=== PATIENT | female | born 1950 | race Caucasian/White ===

== ENCOUNTER 2022-12-17 00:53 | Emergency (ER) | payer MEDICARE, OTHER ==
[2022-12-17] MEDS ORDERED: Diazepam 5 MG TAB ONE (01:41)
[2022-12-17] MEDS ORDERED: Ibuprofen 200 MG TAB ONE (01:42)
== END 2022-12-17 02:00 | disposition home or self-care (01) ==
LOC: BURERS 00:53
DX: S16.1XXA Strain of muscle, fascia and tendon at neck level, initial encounter (principal); M62.838 Other muscle spasm; F17.210 Nicotine dependence, cigarettes, uncomplicated; X58.XXXA Exposure to other specified factors, initial encounter
CPT/HCPCS: 99283